=== PATIENT | female | born 1940 | race Caucasian/White ===

== ENCOUNTER → 2016-09-21 | Outpatient (CLI) | payer MEDICARE, OTHER ==
[~2016-09-21] MED LIST: ALLERGY RELIEF10 M1 PO; ALLERGY10 M1 PO; ALPRAZOLAM PO; ASPIRINEC PO; AZOR 10-20 MG1 UDTAB PO; AZOR 10/20 MG T1 TAB PO; BIOTIN PO; BIOTIN2500 MCG PO; BLACK COHOSH540 MG PO; CELEBREX PO; CELECOXIB200 MG PO; CERTAGEN PO; CHONDROITIN PO; CRESTOR PO; CRESTOR10 MG PO; ECOTRIN325 MG PO; ESTRACE PO; FENOFIBRATE200 M1 PO; FOLIC ACID1 MG PO; GLUCOSAMINE; GLUCOSAMINE & C1 CAP PO; GLUCOSAMINE-CHO1 CA1 PO; GRALISE300 MG PO; HYDROCODON-ACE1 EAC9 PO; IRON SUPPLEMENT OTC PO; LANOXIN PO; LISINOPRIL PO; LOVAZA1 G PO; MACROBID100 M1 DOB; MAGNESIUM500 MG PO; METOPROLOL TAR25 MG PO; NATURAL VITA400 UNI2 PO; NEXIUM PO; NORCO 7.5-3251 EACH PO; OYSTER CALCIUM500 MG PO; POTASSIUM; POTASSIUM GLUC500 GM PO; REQUIP2 MG PO; TIZANIDINE HCL4 M1 PO; TRILIPIX135 MG PO; VEGETARIAN GLU750 MG PO; VITAMIN D31000 UNIT PO; ZANAFLEX6 MG PO; ZOCOR PO; ZOFRAN PO; [UNRECOGNIZED DRUG - OTHER] PO; [UNRECOGNIZED DRUG - REMARK]
--- NOTE | ~2016-09-21 | XA35 ---
[facility] A Service of [facility] RADIOLOGY TEXT RESULTS PATIENT: AIME ENGLE LOCATION: CIVR : 38 UNIT #: [id number] AGE: [address]: Geovanny Leigh MD SEX: F ORDER DR: [id number] [facility] [address] [place], [place] [address] [id number] O MR#: [id number] Acc #: [id number] NAME: AIME ENGLE : 1940 SEX: F STUDY DATE/TIME: 09/21/2016 8:00 UNIT: [facility] ROOM: STUDY DESCRIPTION: XA Arthrogram Shoulder Rt Attending Physician: Geovanny Leigh M.D. Referring Physician: Geovanny Leigh M.D. Ordering Physician: Geovanny Leigh M.D. Primary Care Physician: Lien Givens M.D. MEDICAL IMAGING REPORT This report is preliminary unless electronic signature is present EXAM Right shoulder arthrogram. INDICATION Prior right rotator cuff repair in April of 2016. Patient reports decreased range of motion and discomfort in the right shoulder for 1 month. PROCEDURE There risks, benefits, and alternatives to the procedure were explained to the patient, and signed informed consent was obtained. She was placed supine on the angiographic table and was prepped and draped in the usual sterile fashion. Time-out was performed as per protocol. Skin and subcutaneous tissues were anesthetized with buffered lidocaine and a 22-gauge spinal needle was advanced into the joint space. Contrast was injected which confirmed location within the joint space and dilute gadolinium was injected into the joint space. The patient does appear to have a recurrent rotator cuff tear as there is contrast seen within the subacromial-subdeltoid bursa. Total fluoroscopy time was 0.5 minutes. AK was 5 mGy. Needle was removed. Manual pressure was applied until hemostasis was obtained and a total of 3 fluoroscopic images were obtained in both the adducted and abducted position. The patient tolerated the procedure well and there were no immediate complications. IMPRESSION Technically successful fluoroscopically-guided right shoulder arthrogram. Fluoroscopy was used during the procedure and permanent images were saved. Please see the separately dictated report of the MRI of the shoulder for a full description of findings. Dictated by... Naomi Dc M.D. [facility] A Service of [facility] RADIOLOGY TEXT RESULTS PATIENT: AIME ENGLE LOCATION: [facility] #: [id number] : 38 UNIT #: [id number] AGE: [address]: Geovanny Leigh MD SEX: F ORDER DR: THIS IS AN ELECTRONICALLY VERIFIED REPORT Naomi Dc M.D. at 09/22/2016 5:57 PM ROWAN/juan TD: 09/22/2016 09:58 JOB #: [id number] MEDICAL IMAGING REPORT COPY
--- NOTE | ~2016-09-21 | MR191 ---
[facility] A Service of [facility] & [facility] RADIOLOGY TEXT RESULTS PATIENT: AIME ENGLE [facility] UN[facility] #: [id number] AGE: [address]: Geovanny Leigh MD SEX: F ORDER DR: [id number] [facility] [address] [place], [place] [address] [id number] O MR#: [id number] Acc #: [id number] NAME: AIME ENGLE : 1940 SEX: F STUDY DATE/TIME: 09/21/2016 8:44 UNIT: [facility] ROOM: STUDY DESCRIPTION: MR Shoulder Arthrogram Rt Attending Physician: Geovanny Leigh M.D. Referring Physician: Geovanny Leigh M.D. Ordering Physician: Geovanny Leigh M.D. Primary Care Physician: Lien Givens M.D. MRI CENTER REPORT This report is preliminary unless electronic signature is present. EXAM MR arthrogram right shoulder HISTORY 76-year-old female rotator cuff repair in April 2016, was doing fine with physical therapy. Approximately 6 weeks ago reached behind her before sitting down and felt a sharp pain in right shoulder, very little discomfort now but decreased range of motion. Evaluate for recurrent rotator cuff tear. COMPARISON MRI of the right shoulder 11/12/2015 and conventional arthrogram 09/21/2016. FINDINGS Routine MR arthrogram was performed of the right shoulder following the intraarticular ejection of dilute gadolinium. Examination demonstrates multiple foci of susceptibility artifact and signal abnormality within the humeral head consistent with rotator cuff repair. There is some residual marrow edema, probably expected given the timing of the patient's surgery. No displacement of the suture anchors are identified. Morphologic changes seen along the undersurface the acromion from prior acromioplasty as well as extensive distal clavicular resection. Contrast distends the glenohumeral joint with abnormal communication to the subacromial-subdeltoid bursa through a full-thickness rotator cuff tear involving the supraspinatus tendon. The tear is estimated at least 2.1 cm AP x 3.9 cm [id number] dimension. I suspect the AP tear measurements may be larger as the material anterior to the gap is abnormal and probably represents severe tendinopathy and/or synovitis. The infraspinatus, teres minor and subscapularis tendons appear intact. There is fatty atrophy of both the supraspinatus and infraspinatus muscles. STS. [facility] A Service of [facility] RADIOLOGY TEXT RESULTS PAT[facility]: [facility]IME ENGLE [id number] 36 UNIT #: [id number] AGE: [address]: Geovanny Leigh MD SEX: F ORDER DR: Superior labrum and biceps anchor appears intact. There is biceps tendinopathy with a probable developing longitudinal split tear of the long tendon of the biceps. Anterior and posterior labrum unremarkable. Deltoid and extraarticular soft tissues appear normal. IMPRESSION 1. Recurrent full-thickness tear within the rotator cuff, primarily involving the supraspinatus tendon measuring about 2.1 x 3.9 cm. 2. Mild supraspinatus and infraspinatus muscle atrophy. 3. Postsurgical changes from acromioplasty and distal clavicular resection with normal communication of contrast from the subacromial-subdeltoid bursa to the AC joint, compatible with release of the acromioclavicular ligament. 4. Biceps tendinopathy with a developing longitudinal split tear. Dictated by.Jazmin Snow/enedelia TD: 09/21/2016 20:24 JOB #: [id number] MRI CENTER REPORT
== END | disposition home or self-care (01) ==
LOC: CIVR 07:29
DX: M75.121 Complete rotator cuff tear or rupture of right shoulder, not specified as traumatic (principal); M75.81 Other shoulder lesions, right shoulder
CPT/HCPCS: 73040; 73222; 77002; Q9967